=== PATIENT | male | born 1980 ===

== ENCOUNTER 2021-01-05 21:35 | Inpatient (IN) ==
[2021-01-06] MEDS ORDERED: GLUCAGON 1 MG VIAL IM PRN (01:31)
[2021-01-06] MEDS ORDERED: DEXTROSE 50% 25 GM/50 ML VIAL IV PRN (01:31)
[2021-01-06] MEDS ORDERED: SODIUM CHLORIDE 0.9% 1,000 ML IV SCH (02:00)
[2021-01-06 02:04] LABS: Basophils # 0.1 10*3/uL (0.0-0.2); Basophils % 1.3 % (0.0-0.8); Eosinophils # 0.6 10*3/uL (0.0-0.87); Eosinophils % 6.1 % (0.00-10.9); Hematocrit 25.6 VOL% (42.0-52.0); Hemoglobin 7.4 GM/DL (14.0-18.0); Immature Granulocytes % 0.4 %; Immature Granulocytes Absolute 0.04 #; Lymphocytes # 0.7 10*3/uL (1.4-4.0); Lymphocytes % 7.8 % (21.2-54.2); Mean Corpuscular HGB Conc 28.9 GM/DL (32-36); Mean Corpuscular Volume 87.7 FL (87-102); Mean Platelet Volume 8.7 FL (9.6-12.0); Monocytes % 12.5 % (1.7-12.7); NRBC # 0.03 10*3/uL; Neutrophils % 71.9 % (38.7-73.9); Platelet Count 351 T/CUMM (130-400); Red Blood Count 2.92 MC/CUMM (3.8-5.5); White Blood Count 9.4 T/CUMM (4-12)
[2021-01-06 02:24] LABS: Bilirubin,Total 1.5 MG/DL (0.20-1.00); Calcium 8.2 MG/DL (8.5-10.1); Osmolality,Calculated 311.4 MOS/KG (273-304); Potassium 4.2 MMOL/L (3.5-5.1); Total Protein 6.5 G/DL (6.4-8.2)
[2021-01-06 02:26] LABS: Risk Ratio 3.71; Thyroid Stimulating Hormone 4.84 uIU/ml (0.358-3.74)
[2021-01-06] MEDS: HEPARIN 5,000 UNIT/1 ML VIAL SUBCUT SCH ×2 (02:26→17:24)
[2021-01-06 03:18] LABS: Hepatitis B Core IgM Quant 0.06 Index; Hepatitis B Surface Ag Quant < 0.10 Index; Hepatitis B Surface Ag Result Non-Reactive (NonReactive); Hepatitis C Virus Ab Quant 0.06 Index; Hepatitis C Virus Ab Result Non-Reactive (NonReactive)
[2021-01-06] MEDS ORDERED: hydrALAZINE 20 MG/1 ML VIAL IM PRN (03:25)
[2021-01-06] MEDS ORDERED: MORPHINE 2 MG/1 ML SYRINGE IM PRN (03:31)
[2021-01-06 04:31] LABS: Bacteria,Urine Occasional /HPF (Few); Bilirubin,Urine Negative (Negative); Blood, Urine Small mg/dL (Negative); Glucose,Urine (UA) >=500 mg/dL (Negative); Hyaline Casts,Urine 6 /LPF (0-3); Ketones,Urine Negative (Negative); Mucus,Urine Occasional /LPF (Occasional); Nitrite,Urine Negative (Negative); Protein,Urine >=500 MG/DL; RBC,Urine 2 /HPF (0-4); Squamous Epithelial Cell,Urine Occasional /HPF (0-10); Urine Appearance Slightly Hazy (Clear); Urine Color Yellow (Yellow); Urine Specific Gravity 1.012 (1.001-1.035); Urine Urobilinogen < 2.0 EU/DL (0.2-1.0)
[2021-01-06 04:56] LABS: INR 1.1; PT Patient Result 12.5 SECS (10.5-12.0); Partial Thromboplastin Time 30.2 SECS (23.8-32.1)
[2021-01-06] MEDS ORDERED: SIMVASTATIN 10 MG TABLET PO SCH (09:00)
[2021-01-06] MEDS: INSULIN LISPRO 100 UNIT/ML SUBCUT SCH ×2 (11:12→17:34)
[2021-01-06] MEDS ORDERED: FUROSEMIDE 40 MG/4 ML VIAL IV ONE (12:20)
[2021-01-06] MEDS: METOPROLOL SUCCINATE XL 50 MG TABLET PO SCH (12:55)
[2021-01-06] MEDS: ISOSORBIDE MONONITRATE 30 MG TABLET PO SCH (12:55)
[2021-01-06] MEDS ORDERED: POTASSIUM CHLORIDE 20 MEQ TABLET PO PRN (14:07)
[2021-01-06] MEDS: SEVELAMER CARBONATE 800 MG TABLET PO SCH (17:23)
[2021-01-06] MEDS ORDERED: METOPROLOL SUCCINATE XL 50 MG TABLET PO SCH (21:00)
[2021-01-06] MEDS: amLODIPine 10 MG TABLET PO SCH (21:15)
[2021-01-07] MEDS: HEPARIN 5,000 UNIT/1 ML VIAL SUBCUT SCH ×2 (02:50→16:50)
[2021-01-07 07:30] LABS: Calcium 8.1 MG/DL (8.5-10.1); Osmolality,Calculated 309.4 MOS/KG (273-304); Potassium 4.3 MMOL/L (3.5-5.1)
[2021-01-07 07:31] LABS: Basophils # 0.1 10*3/uL (0.0-0.2); Basophils % 1.1 % (0.0-0.8); Eosinophils # 0.4 10*3/uL (0.0-0.87); Eosinophils % 4.8 % (0.00-10.9); Hematocrit 26.1 VOL% (42.0-52.0); Hemoglobin 7.4 GM/DL (14.0-18.0); Immature Granulocytes % 0.6 %; Immature Granulocytes Absolute 0.05 #; Lymphocytes # 0.6 10*3/uL (1.4-4.0); Lymphocytes % 7.6 % (21.2-54.2); Mean Corpuscular HGB Conc 28.4 GM/DL (32-36); Mean Corpuscular Volume 89.1 FL (87-102); Mean Platelet Volume 9.4 FL (9.6-12.0); Monocytes % 14.2 % (1.7-12.7); NRBC # 0.02 10*3/uL; Neutrophils % 71.7 % (38.7-73.9); Platelet Count 339 T/CUMM (130-400); Red Blood Count 2.93 MC/CUMM (3.8-5.5); Red Cell Distribution Width 18.8 % (9.3-17.3); White Blood Count 8.3 T/CUMM (4-12)
[2021-01-07 07:32] LABS: Parathyroid Hormone Intact 73.5 PG/ML (18.4-80.1)
[2021-01-07 07:35] LABS: % Iron Saturation 12.9 % (18-50); Ferritin 136.4 ng/mL (26-388)
[2021-01-07 08:02] LABS: Total Protein 6.5 G/DL (6.4-8.2)
[2021-01-07 08:53] LABS: Hypochromasia 3+; Microcytosis 1+; Ovalocytes Few; Platelet Estimate Normal; Schistocytes Slight
[2021-01-07] MEDS: OMEGA 3 ACID ETHYL ESTERS 1 GM CAPSULE PO SCH (08:54)
[2021-01-07] MEDS: ISOSORBIDE MONONITRATE 30 MG TABLET PO SCH (08:54)
[2021-01-07] MEDS: SEVELAMER CARBONATE 800 MG TABLET PO SCH ×3 (08:54→18:08)
[2021-01-07] MEDS: METOPROLOL SUCCINATE XL 50 MG TABLET PO SCH (08:55)
[2021-01-07] MEDS: ASPIRIN EC 81 MG TABLET PO SCH (08:55)
[2021-01-07] MEDS: INSULIN LISPRO 100 UNIT/ML SUBCUT SCH ×2 (09:00→16:57)
[2021-01-07] MEDS ORDERED: FUROSEMIDE 40 MG/4 ML VIAL IV ONE (11:18)
[2021-01-07] MEDS: FERROUS SULFATE 325 MG TABLET PO SCH (16:50)
[2021-01-07] MEDS: amLODIPine 10 MG TABLET PO SCH (20:37)
[2021-01-08] MEDS: HEPARIN 5,000 UNIT/1 ML VIAL SUBCUT SCH ×2 (02:47→15:29)
[2021-01-08 05:33] LABS: Basophils # 0.1 10*3/uL (0.0-0.2); Eosinophils # 0.5 10*3/uL (0.0-0.87); Eosinophils % 5.2 % (0.00-10.9); Hematocrit 24.8 VOL% (42.0-52.0); Hemoglobin 7.1 GM/DL (14.0-18.0); Immature Granulocytes % 0.3 %; Immature Granulocytes Absolute 0.03 #; Lymphocytes # 0.6 10*3/uL (1.4-4.0); Lymphocytes % 6.9 % (21.2-54.2); Mean Corpuscular HGB Conc 28.6 GM/DL (32-36); Mean Corpuscular Volume 88.9 FL (87-102); Mean Platelet Volume 8.9 FL (9.6-12.0); Monocytes % 12.2 % (1.7-12.7); Neutrophils % 74.4 % (38.7-73.9); Platelet Count 325 T/CUMM (130-400); Red Blood Count 2.79 MC/CUMM (3.8-5.5); Red Cell Distribution Width 18.7 % (9.3-17.3); White Blood Count 8.6 T/CUMM (4-12)
[2021-01-08 05:51] LABS: Calcium 7.6 MG/DL (8.5-10.1); Osmolality,Calculated 310.4 MOS/KG (273-304); Potassium 4.2 MMOL/L (3.5-5.1)
[2021-01-08 05:54] LABS: Albumin 1.9 G/DL (3.4-5.0); Osmolality,Calculated 308.5 MOS/KG (273-304); Potassium 4.2 MMOL/L (3.5-5.1); Total Protein 6.3 G/DL (6.4-8.2)
[2021-01-08 07:04] LABS: Total Protein (Chem) 6.5 G/DL (6.4-8.3)
[2021-01-08] MEDS: INSULIN LISPRO 100 UNIT/ML SUBCUT SCH ×2 (08:54→16:46)
[2021-01-08 09:00] LABS: Albumin (SPE) 2.8 G/DL (3.2-5.3); Albumin (SPE) Rel % 43.4 %; Alpha 1 (SPE) 0.3 G/DL (0.1-0.4); Alpha 1 (SPE) Rel % 5.1 %; Alpha 2 (SPE) 0.9 G/DL (0.4-1.0); Alpha 2 (SPE) Rel % 14.1 %; Beta (SPE) 0.7 G/DL (0.5-1.1); Beta (SPE) Rel % 11.3 %; Gamma (SPE) 1.7 G/DL (0.7-1.7); Gamma (SPE) Rel % 26.1 %
[2021-01-08 09:26] LABS: Immunoglobulin A (Chem) 494 MG/DL (70-400); Immunoglobulin G (Chem) 1500 MG/DL (700-1600); Immunoglobulin M (Chem) 115 MG/DL (40-230)
[2021-01-08 10:02] LABS: Creatinine Clearance Urine 7.21 ML/MIN (70-135)
[2021-01-08] MEDS: SEVELAMER CARBONATE 800 MG TABLET PO SCH ×3 (10:25→16:56)
[2021-01-08] MEDS: ISOSORBIDE MONONITRATE 30 MG TABLET PO SCH (11:11)
[2021-01-08] MEDS: METOPROLOL SUCCINATE XL 100 MG TABLET PO SCH (11:11)
[2021-01-08] MEDS: OMEGA 3 ACID ETHYL ESTERS 1 GM CAPSULE PO SCH (11:11)
[2021-01-08] MEDS: PANTOPRAZOLE 40 MG TABLET PO SCH (11:12)
[2021-01-08] MEDS: FERROUS SULFATE 325 MG TABLET PO SCH (11:12)
[2021-01-08] MEDS: ASPIRIN EC 81 MG TABLET PO SCH (11:12)
[2021-01-08 14:37] LABS: Total Protein 24 Hr Ur Result 9945 MG/24HR (0-149.1); Total Volume,Urine 1300 ML (400-2000)
[2021-01-08] MEDS: amLODIPine 10 MG TABLET PO SCH (21:16)
[2021-01-09] MEDS: HEPARIN 5,000 UNIT/1 ML VIAL SUBCUT SCH ×2 (01:27→15:27)
[2021-01-09 06:19] LABS: Basophils # 0.1 10*3/uL (0.0-0.2); Basophils % 0.9 % (0.0-0.8); Eosinophils # 0.3 10*3/uL (0.0-0.87); Eosinophils % 3.1 % (0.00-10.9); Hematocrit 24.3 VOL% (42.0-52.0); Immature Granulocytes % 0.5 %; Immature Granulocytes Absolute 0.04 #; Lymphocytes # 0.6 10*3/uL (1.4-4.0); Lymphocytes % 6.5 % (21.2-54.2); Mean Corpuscular HGB Conc 28.8 GM/DL (32-36); Monocytes % 13.2 % (1.7-12.7); NRBC # 0.02 10*3/uL; Neutrophils % 75.8 % (38.7-73.9); Platelet Count 307 T/CUMM (130-400); Red Blood Count 2.73 MC/CUMM (3.8-5.5); Red Cell Distribution Width 19.2 % (9.3-17.3); White Blood Count 8.7 T/CUMM (4-12)
[2021-01-09 06:45] LABS: Hypochromasia 1+; Platelet Estimate Normal
[2021-01-09 06:58] LABS: Albumin 1.8 G/DL (3.4-5.0); Bilirubin,Total 1.4 MG/DL (0.20-1.00); Calcium 7.7 MG/DL (8.5-10.1); Osmolality,Calculated 307.7 MOS/KG (273-304); Potassium 4.4 MMOL/L (3.5-5.1); Total Protein 6.3 G/DL (6.4-8.2)
[2021-01-09 07:46] LABS: 24 Hr Protein (Bench) 9945 MG/24HR (0-149.1)
[2021-01-09] MEDS: INSULIN LISPRO 100 UNIT/ML SUBCUT SCH ×2 (08:37→16:10)
[2021-01-09 09:16] LABS: Albumin (UPE) Rel % 65.4 %; Alpha 1 (UPE) 328.2 MG/24H; Alpha 1 (UPE) Rel % 3.3 %; Alpha 2 (UPE) 666.3 MG/24H; Alpha 2 (UPE) Rel % 6.7 %; Beta (UPE) 994.5 MG/24H; Gamma (UPE) Rel % 14.6 %
[2021-01-09] MEDS ORDERED: SODIUM CHLORIDE 0.9% 1,000 ML IV PRN (09:33)
[2021-01-09] MEDS: SEVELAMER CARBONATE 800 MG TABLET PO SCH ×3 (09:56→18:08)
[2021-01-09] MEDS: ASPIRIN EC 81 MG TABLET PO SCH (09:56)
[2021-01-09] MEDS: FERROUS SULFATE 325 MG TABLET PO SCH (09:56)
[2021-01-09] MEDS: ISOSORBIDE MONONITRATE 30 MG TABLET PO SCH (09:56)
[2021-01-09] MEDS: METOPROLOL SUCCINATE XL 100 MG TABLET PO SCH (09:57)
[2021-01-09] MEDS: PANTOPRAZOLE 40 MG TABLET PO SCH (09:57)
[2021-01-09] MEDS: OMEGA 3 ACID ETHYL ESTERS 1 GM CAPSULE PO SCH (09:57)
[2021-01-09] MEDS: amLODIPine 10 MG TABLET PO SCH (21:10)
[2021-01-09 22:36] LABS: Hematocrit 27.9 VOL% (42.0-52.0); Hemoglobin 8.2 GM/DL (14.0-18.0)
[2021-01-10] MEDS: HEPARIN 5,000 UNIT/1 ML VIAL SUBCUT SCH ×2 (01:06→15:06)
[2021-01-10 04:23] LABS: Basophils # 0.1 10*3/uL (0.0-0.2); Basophils % 0.9 % (0.0-0.8); Eosinophils # 0.4 10*3/uL (0.0-0.87); Hemoglobin 8.1 GM/DL (14.0-18.0); Immature Granulocytes % 0.6 %; Immature Granulocytes Absolute 0.05 #; Lymphocytes # 0.6 10*3/uL (1.4-4.0); Lymphocytes % 6.9 % (21.2-54.2); Mean Corpuscular Volume 87.7 FL (87-102); Mean Platelet Volume 8.8 FL (9.6-12.0); Monocytes % 12.8 % (1.7-12.7); Neutrophils % 74.8 % (38.7-73.9); Platelet Count 304 T/CUMM (130-400); Red Blood Count 3.08 MC/CUMM (3.8-5.5); Red Cell Distribution Width 18.6 % (9.3-17.3); White Blood Count 8.8 T/CUMM (4-12)
[2021-01-10 04:41] LABS: Calcium 7.9 MG/DL (8.5-10.1); Osmolality,Calculated 310.5 MOS/KG (273-304); Potassium 4.5 MMOL/L (3.5-5.1)
[2021-01-10] MEDS: OMEGA 3 ACID ETHYL ESTERS 1 GM CAPSULE PO SCH (09:52)
[2021-01-10] MEDS: ASPIRIN EC 81 MG TABLET PO SCH (09:52)
[2021-01-10] MEDS: PANTOPRAZOLE 40 MG TABLET PO SCH (09:52)
[2021-01-10] MEDS: FERROUS SULFATE 325 MG TABLET PO SCH (09:52)
[2021-01-10] MEDS: ISOSORBIDE MONONITRATE 60 MG TABLET PO SCH (09:52)
[2021-01-10] MEDS: SEVELAMER CARBONATE 800 MG TABLET PO SCH ×3 (09:52→16:38)
[2021-01-10] MEDS: METOPROLOL SUCCINATE XL 100 MG TABLET PO SCH (09:52)
[2021-01-10 09:58] LABS: Lymphocytes,Synovial Fluid 26 %; Neutrophils,Synovial Fluid 74 %
[2021-01-10 10:01] LABS: Cholesterol Crystals None Seen /LPF
[2021-01-10] MEDS: INSULIN LISPRO 100 UNIT/ML SUBCUT SCH ×2 (10:04→16:43)
[2021-01-10] MEDS: amLODIPine 10 MG TABLET PO SCH (21:36)
[2021-01-11] MEDS: HEPARIN 5,000 UNIT/1 ML VIAL SUBCUT SCH ×2 (02:47→13:42)
[2021-01-11 05:48] LABS: Basophils # 0.1 10*3/uL (0.0-0.2); Basophils % 0.8 % (0.0-0.8); Eosinophils # 0.4 10*3/uL (0.0-0.87); Eosinophils % 4.7 % (0.00-10.9); Hematocrit 26.5 VOL% (42.0-52.0); Hemoglobin 7.7 GM/DL (14.0-18.0); Immature Granulocytes % 0.4 %; Immature Granulocytes Absolute 0.03 #; Lymphocytes # 0.5 10*3/uL (1.4-4.0); Lymphocytes % 5.7 % (21.2-54.2); Mean Corpuscular HGB Conc 29.1 GM/DL (32-36); Mean Corpuscular Volume 87.7 FL (87-102); Neutrophils % 76.4 % (38.7-73.9); Platelet Count 300 T/CUMM (130-400); Red Blood Count 3.02 MC/CUMM (3.8-5.5); Red Cell Distribution Width 18.4 % (9.3-17.3); White Blood Count 8.5 T/CUMM (4-12)
[2021-01-11 06:07] LABS: Calcium 7.9 MG/DL (8.5-10.1); Osmolality,Calculated 308.5 MOS/KG (273-304); Potassium 4.5 MMOL/L (3.5-5.1)
[2021-01-11] MEDS: ASPIRIN EC 81 MG TABLET PO SCH (10:01)
[2021-01-11] MEDS: PANTOPRAZOLE 40 MG TABLET PO SCH (10:02)
[2021-01-11] MEDS: FERROUS SULFATE 325 MG TABLET PO SCH (10:02)
[2021-01-11] MEDS: SEVELAMER CARBONATE 800 MG TABLET PO SCH ×2 (10:02→11:38)
[2021-01-11] MEDS: OMEGA 3 ACID ETHYL ESTERS 1 GM CAPSULE PO SCH (10:02)
[2021-01-11] MEDS: ISOSORBIDE MONONITRATE 60 MG TABLET PO SCH (10:02)
[2021-01-11] MEDS: METOPROLOL SUCCINATE XL 100 MG TABLET PO SCH (10:02)
[2021-01-11] MEDS: INSULIN LISPRO 100 UNIT/ML SUBCUT SCH (10:09)
[2021-01-11] MEDS ORDERED: INFLUENZA VIRUS VACCINE 0.5 ML SYRINGE IM ONE (13:33)
[2021-01-11 16:25] VITALS: BP 136/82
[2021-01-12 09:11] LABS: Immuno Free Light Chain Kappa 19.28 MG/DL (0.33-1.94); Immuno Free Light Chain Lambda 17.96 MG/DL (0.57-2.63); Immuno Free Light Chain Ratio 1.07 MG/DL (0.26-1.65)
== END 2021-01-11 16:30 | disposition home health service (06) | DRG 698 ==
LOC: SUATTDRO 23:11 → N.TELES 23:11
PROVIDERS: ADMIT Internal Medicine; ATTEND Internal Medicine

== ENCOUNTER 2021-01-29 11:56 | Inpatient (IN) ==
[2021-01-29] MEDS ORDERED: ACETAMINOPHEN 325 MG TABLET PO PRN (15:38)
[2021-01-29] MEDS ORDERED: BISACODYL 5 MG TABLET PO PRN (15:38)
[2021-01-29] MEDS ORDERED: PROMETHAZINE 25 MG TABLET PO PRN (15:38)
[2021-01-29] MEDS ORDERED: ONDANSETRON 4 MG/2 ML VIAL IV PRN (15:38)
[2021-01-29] MEDS ORDERED: LOPERAMIDE 2 MG CAPSULE PO ONE (15:52)
[2021-01-29] MEDS ORDERED: LOPERAMIDE 2 MG CAPSULE PO PRN (15:52)
[2021-01-29 17:29] LABS: Basophils # 0.1 10*3/uL (0.0-0.2); Basophils % 0.6 % (0.0-0.8); Eosinophils # 0.3 10*3/uL (0.0-0.87); Eosinophils % 2.4 % (0.00-10.9); Hemoglobin 7.8 GM/DL (14.0-18.0); Immature Granulocytes % 0.6 %; Immature Granulocytes Absolute 0.07 #; Lymphocytes # 0.4 10*3/uL (1.4-4.0); Lymphocytes % 3.6 % (21.2-54.2); Mean Corpuscular HGB Conc 28.9 GM/DL (32-36); Mean Corpuscular Volume 87.1 FL (87-102); Mean Platelet Volume 8.8 FL (9.6-12.0); Monocytes % 12.9 % (1.7-12.7); Neutrophils % 79.9 % (38.7-73.9); Platelet Count 289 T/CUMM (130-400); Red Cell Distribution Width 19.2 % (9.3-17.3); White Blood Count 11.9 T/CUMM (4-12)
[2021-01-29 17:54] LABS: % Iron Saturation 10.5 % (18-50); Ferritin 140.5 ng/mL (26-388)
[2021-01-29 17:55] LABS: Anisocytosis 2+; Burr Cells Few; Eosinophils 2 % (0-10); Hypochromasia 1+; Lymphocytes 2 % (20-55); Macrocytosis 1+; Microcytosis 2+; Platelet Estimate Normal; Poikilocytosis Few; Segmented Neutrophils 90 % (50-85); Total Cells Counted 100
[2021-01-29 17:56] LABS: Polychromasia Few
[2021-01-29 17:57] LABS: Calcium 7.6 MG/DL (8.5-10.1); Osmolality,Calculated 317.4 MOS/KG (273-304); Potassium 4.9 MMOL/L (3.5-5.1)
[2021-01-29] MEDS: FUROSEMIDE 80 MG TABLET PO SCH (18:12)
[2021-01-29] MEDS: SEVELAMER CARBONATE 800 MG TABLET PO SCH (18:12)
[2021-01-29 18:32] LABS: Hepatitis B Core IgM Quant 0.14 Index; Hepatitis B Surface Ag Quant < 0.10 Index; Hepatitis B Surface Ag Result Non-Reactive (NonReactive); Hepatitis C Virus Ab Quant 0.11 Index; Hepatitis C Virus Ab Result Non-Reactive (NonReactive)
[2021-01-29] MEDS: amLODIPine 10 MG TABLET PO SCH (22:10)
[2021-01-30] MEDS ORDERED: EPOETIN ALFA-EPBX 10,000 UNIT/ML VIAL IV PRN (08:29)
[2021-01-30] MEDS ORDERED: MIDAZOLAM 2 MG/2 ML VIAL ONE (08:51)
[2021-01-30] MEDS ORDERED: LIDOCAINE 2% 5 ML VIAL ONE (08:51)
[2021-01-30] MEDS ORDERED: fentaNYL 100 MCG/2 ML VIAL ONE (08:51)
[2021-01-30] MEDS ORDERED: propofoL 200 MG/20 ML VIAL IV ONE (08:51)
[2021-01-30] MEDS ORDERED: KETAMINE 500 MG/10 ML VIAL ONE (08:51)
[2021-01-30] MEDS ORDERED: IRON SUCROSE 100 MG/5 ML VIAL IV SCH (09:00)
[2021-01-30] MEDS ORDERED: LIDOCAINE 1% 50 ML VIAL ONE (09:08)
[2021-01-30] MEDS ORDERED: HEPARIN 5,000 UNIT/1 ML VIAL ONE (09:08)
[2021-01-30] MEDS ORDERED: BUPIVACAINE MPF 0.25% 30 ML VIAL ONE (09:08)
[2021-01-30] MEDS ORDERED: ceFAZolin 1,000 MG VIAL ONE (10:00)
[2021-01-30] MEDS ORDERED: SODIUM CHLORIDE 0.9% 250 ML IV SCH (10:00)
[2021-01-30] MEDS: SEVELAMER CARBONATE 800 MG TABLET PO SCH ×3 (11:58→17:26)
[2021-01-30] MEDS: CHOLECALCIFEROL 5,000 UNIT TABLET PO SCH (11:59)
[2021-01-30] MEDS: ASPIRIN EC 81 MG TABLET PO SCH (11:59)
[2021-01-30] MEDS: FUROSEMIDE 80 MG TABLET PO SCH ×2 (11:59→17:26)
[2021-01-30] MEDS: ISOSORBIDE MONONITRATE 60 MG TABLET PO SCH (12:00)
[2021-01-30] MEDS: PANTOPRAZOLE 40 MG TABLET PO SCH (12:00)
[2021-01-30] MEDS: FERRIC GLUCONATE COMPLEX 125 MG in SODIUM CHLORIDE 0.9% 100 ML IV SCH (12:01)
[2021-01-30] MEDS: INSULIN REGULAR 100 UNIT/ML SUBCUT SCH ×3 (12:01→22:11)
[2021-01-30] MEDS: METOPROLOL SUCCINATE XL 100 MG TABLET PO SCH (12:01)
[2021-01-30] MEDS: INSULIN GLARGINE 100 UNIT/ML SUBCUT SCH (12:15)
[2021-01-30] MEDS ORDERED: HEPARIN 10,000 UNIT/10 ML VIAL IV SCH (14:30)
[2021-01-30] MEDS: amLODIPine 10 MG TABLET PO SCH (22:10)
[2021-01-31 05:36] LABS: Calcium 7.5 MG/DL (8.5-10.1); Osmolality,Calculated 313.1 MOS/KG (273-304); Potassium 4.6 MMOL/L (3.5-5.1)
[2021-01-31 05:57] LABS: Basophils # 0.1 10*3/uL (0.0-0.2); Basophils % 0.7 % (0.0-0.8); Eosinophils # 0.4 10*3/uL (0.0-0.87); Eosinophils % 3.7 % (0.00-10.9); Hematocrit 26.2 VOL% (42.0-52.0); Hemoglobin 7.5 GM/DL (14.0-18.0); Immature Granulocytes % 0.5 %; Immature Granulocytes Absolute 0.05 #; Lymphocytes # 0.5 10*3/uL (1.4-4.0); Lymphocytes % 4.7 % (21.2-54.2); Mean Corpuscular HGB Conc 28.6 GM/DL (32-36); Mean Corpuscular Volume 89.1 FL (87-102); Monocytes % 12.3 % (1.7-12.7); NRBC # 0.02 10*3/uL; Neutrophils % 78.1 % (38.7-73.9); Platelet Count 250 T/CUMM (130-400); Red Blood Count 2.94 MC/CUMM (3.8-5.5); Red Cell Distribution Width 19.1 % (9.3-17.3); White Blood Count 10.2 T/CUMM (4-12)
[2021-01-31 06:05] LABS: Burr Cells Slight; Eosinophils 6 % (0-10); Hypochromasia 1+; Lymphocytes 2 % (20-55); Microcytosis 1+; Ovalocytes Slight; Platelet Estimate Adequate; Segmented Neutrophils 84 % (50-85); Total Cells Counted 100
[2021-01-31] MEDS: PANTOPRAZOLE 40 MG TABLET PO SCH (06:17)
[2021-01-31] MEDS: INSULIN REGULAR 100 UNIT/ML SUBCUT SCH ×4 (07:53→23:58)
[2021-01-31] MEDS: FUROSEMIDE 80 MG TABLET PO SCH ×2 (11:59→16:04)
[2021-01-31] MEDS: SEVELAMER CARBONATE 800 MG TABLET PO SCH ×3 (11:59→18:25)
[2021-01-31] MEDS: ISOSORBIDE MONONITRATE 60 MG TABLET PO SCH (12:00)
[2021-01-31] MEDS: CHOLECALCIFEROL 5,000 UNIT TABLET PO SCH (12:00)
[2021-01-31] MEDS: ASPIRIN EC 81 MG TABLET PO SCH (12:00)
[2021-01-31] MEDS: INSULIN GLARGINE 100 UNIT/ML SUBCUT SCH (12:00)
[2021-01-31] MEDS: FERRIC GLUCONATE COMPLEX 125 MG in SODIUM CHLORIDE 0.9% 100 ML IV SCH (12:00)
[2021-01-31] MEDS: METOPROLOL SUCCINATE XL 100 MG TABLET PO SCH (12:00)
[2021-01-31] MEDS: amLODIPine 10 MG TABLET PO SCH (22:25)
[2021-02-01] MEDS: PANTOPRAZOLE 40 MG TABLET PO SCH (06:41)
[2021-02-01 07:11] LABS: Basophils # 0.1 10*3/uL (0.0-0.2); Basophils % 0.7 % (0.0-0.8); Eosinophils # 0.4 10*3/uL (0.0-0.87); Eosinophils % 3.8 % (0.00-10.9); Hematocrit 24.3 VOL% (42.0-52.0); Hemoglobin 7.1 GM/DL (14.0-18.0); Immature Granulocytes % 0.7 %; Immature Granulocytes Absolute 0.08 #; Lymphocytes # 0.5 10*3/uL (1.4-4.0); Lymphocytes % 4.7 % (21.2-54.2); Mean Corpuscular HGB Conc 29.2 GM/DL (32-36); Mean Corpuscular Volume 87.7 FL (87-102); Mean Platelet Volume 9.1 FL (9.6-12.0); Monocytes % 13.5 % (1.7-12.7); Neutrophils % 76.6 % (38.7-73.9); Platelet Count 260 T/CUMM (130-400); Red Blood Count 2.77 MC/CUMM (3.8-5.5); Red Cell Distribution Width 18.9 % (9.3-17.3); White Blood Count 10.8 T/CUMM (4-12)
[2021-02-01 07:32] LABS: Albumin 1.7 G/DL (3.4-5.0); Bilirubin,Direct 0.3 MG/DL (0.0-0.20); Bilirubin,Indirect 0.6 MG/DL (0.0-1.0); Bilirubin,Total 0.9 MG/DL (0.20-1.00); Calcium 7.4 MG/DL (8.5-10.1); Osmolality,Calculated 302.1 MOS/KG (273-304); Potassium 4.1 MMOL/L (3.5-5.1); Total Protein 6.2 G/DL (6.4-8.2)
[2021-02-01 07:34] LABS: Anisocytosis 3+; Band Neutrophils 5 % (0-10); Burr Cells Few; Eosinophils 6 % (0-10); Lymphocytes 7 % (20-55); Platelet Estimate Normal; Polychromasia Slight; Segmented Neutrophils 69 % (50-85); Total Cells Counted 100
[2021-02-01] MEDS: INSULIN REGULAR 100 UNIT/ML SUBCUT SCH ×4 (07:42→20:08)
[2021-02-01] MEDS: METOPROLOL SUCCINATE XL 100 MG TABLET PO SCH (09:33)
[2021-02-01] MEDS: CHOLECALCIFEROL 5,000 UNIT TABLET PO SCH (09:33)
[2021-02-01] MEDS: FUROSEMIDE 80 MG TABLET PO SCH ×2 (09:33→15:29)
[2021-02-01] MEDS: SEVELAMER CARBONATE 800 MG TABLET PO SCH ×3 (09:33→16:37)
[2021-02-01] MEDS: FERRIC GLUCONATE COMPLEX 125 MG in SODIUM CHLORIDE 0.9% 100 ML IV SCH (09:33)
[2021-02-01] MEDS: ASPIRIN EC 81 MG TABLET PO SCH (09:33)
[2021-02-01] MEDS: INSULIN GLARGINE 100 UNIT/ML SUBCUT SCH (09:33)
[2021-02-01] MEDS: ISOSORBIDE MONONITRATE 60 MG TABLET PO SCH (09:33)
[2021-02-01] MEDS: amLODIPine 10 MG TABLET PO SCH (20:06)
[2021-02-02 05:19] LABS: Basophils # 0.1 10*3/uL (0.0-0.2); Basophils % 0.7 % (0.0-0.8); Eosinophils # 0.5 10*3/uL (0.0-0.87); Eosinophils % 4.7 % (0.00-10.9); Hematocrit 25.3 VOL% (42.0-52.0); Hemoglobin 7.3 GM/DL (14.0-18.0); Immature Granulocytes % 0.7 %; Immature Granulocytes Absolute 0.08 #; Lymphocytes # 0.5 10*3/uL (1.4-4.0); Lymphocytes % 4.8 % (21.2-54.2); Mean Corpuscular HGB Conc 28.9 GM/DL (32-36); Mean Corpuscular Volume 88.2 FL (87-102); Neutrophils % 76.1 % (38.7-73.9); Platelet Count 271 T/CUMM (130-400); Red Blood Count 2.87 MC/CUMM (3.8-5.5); White Blood Count 10.9 T/CUMM (4-12)
[2021-02-02 05:38] LABS: Calcium 7.7 MG/DL (8.5-10.1); Osmolality,Calculated 291.4 MOS/KG (273-304)
[2021-02-02 05:53] LABS: Band Neutrophils 2 % (0-10); Eosinophils 4 % (0-10); Segmented Neutrophils 73 % (50-85); Total Cells Counted 100
[2021-02-02 05:54] LABS: Acanthocytes Few; Hypochromasia 2+; Platelet Estimate Adequate; Poikilocytosis Slight
[2021-02-02] MEDS: PANTOPRAZOLE 40 MG TABLET PO SCH (05:54)
[2021-02-02] MEDS: INSULIN REGULAR 100 UNIT/ML SUBCUT SCH ×4 (08:11→21:21)
[2021-02-02] MEDS: ISOSORBIDE MONONITRATE 60 MG TABLET PO SCH (08:28)
[2021-02-02] MEDS: INSULIN GLARGINE 100 UNIT/ML SUBCUT SCH (08:28)
[2021-02-02] MEDS: METOPROLOL SUCCINATE XL 100 MG TABLET PO SCH (08:29)
[2021-02-02] MEDS: CHOLECALCIFEROL 5,000 UNIT TABLET PO SCH (08:29)
[2021-02-02] MEDS: SEVELAMER CARBONATE 800 MG TABLET PO SCH ×3 (08:29→17:19)
[2021-02-02] MEDS: ASPIRIN EC 81 MG TABLET PO SCH (08:29)
[2021-02-02] MEDS: FUROSEMIDE 80 MG TABLET PO SCH ×2 (08:29→15:32)
[2021-02-02] MEDS: FERRIC GLUCONATE COMPLEX 125 MG in SODIUM CHLORIDE 0.9% 100 ML IV SCH (12:47)
[2021-02-02] MEDS: amLODIPine 10 MG TABLET PO SCH (21:21)
[2021-02-03] MEDS: PANTOPRAZOLE 40 MG TABLET PO SCH (05:40)
[2021-02-03] MEDS: INSULIN REGULAR 100 UNIT/ML SUBCUT SCH ×4 (11:32→20:41)
[2021-02-03] MEDS: SEVELAMER CARBONATE 800 MG TABLET PO SCH ×3 (11:34→17:16)
[2021-02-03] MEDS: FERRIC GLUCONATE COMPLEX 125 MG in SODIUM CHLORIDE 0.9% 100 ML IV SCH (12:34)
[2021-02-03] MEDS: METOPROLOL SUCCINATE XL 100 MG TABLET PO SCH (12:38)
[2021-02-03] MEDS: ISOSORBIDE MONONITRATE 60 MG TABLET PO SCH (12:38)
[2021-02-03] MEDS: ASPIRIN EC 81 MG TABLET PO SCH (12:38)
[2021-02-03] MEDS: FUROSEMIDE 80 MG TABLET PO SCH ×2 (12:38→15:55)
[2021-02-03] MEDS: CHOLECALCIFEROL 5,000 UNIT TABLET PO SCH (12:38)
[2021-02-03] MEDS: INSULIN GLARGINE 100 UNIT/ML SUBCUT SCH (12:39)
[2021-02-03] MEDS: amLODIPine 10 MG TABLET PO SCH (20:41)
[2021-02-04] MEDS: PANTOPRAZOLE 40 MG TABLET PO SCH (15:23)
[2021-02-04] MEDS: FUROSEMIDE 80 MG TABLET PO SCH ×2 (15:24→16:45)
[2021-02-04] MEDS: SEVELAMER CARBONATE 800 MG TABLET PO SCH ×2 (15:24→16:45)
[2021-02-04] MEDS: INSULIN REGULAR 100 UNIT/ML SUBCUT SCH ×3 (15:24→21:08)
[2021-02-04] MEDS: CHOLECALCIFEROL 5,000 UNIT TABLET PO SCH (15:25)
[2021-02-04] MEDS: METOPROLOL SUCCINATE XL 100 MG TABLET PO SCH (15:25)
[2021-02-04] MEDS: ASPIRIN EC 81 MG TABLET PO SCH (15:25)
[2021-02-04] MEDS: INSULIN GLARGINE 100 UNIT/ML SUBCUT SCH (15:25)
[2021-02-04] MEDS: ISOSORBIDE MONONITRATE 60 MG TABLET PO SCH (15:25)
[2021-02-04] MEDS: FERRIC GLUCONATE COMPLEX 125 MG in SODIUM CHLORIDE 0.9% 100 ML IV SCH (15:25)
[2021-02-04] MEDS: amLODIPine 10 MG TABLET PO SCH (21:08)
[2021-02-05 06:05] LABS: Basophils # 0.1 10*3/uL (0.0-0.2); Eosinophils # 0.7 10*3/uL (0.0-0.87); Eosinophils % 6.9 % (0.00-10.9); Hemoglobin 7.1 GM/DL (14.0-18.0); Immature Granulocytes % 0.5 %; Immature Granulocytes Absolute 0.05 #; Lymphocytes # 0.7 10*3/uL (1.4-4.0); Lymphocytes % 6.2 % (21.2-54.2); Mean Corpuscular HGB Conc 28.4 GM/DL (32-36); Mean Corpuscular Volume 87.7 FL (87-102); Mean Platelet Volume 8.9 FL (9.6-12.0); Monocytes % 12.1 % (1.7-12.7); Neutrophils % 73.3 % (38.7-73.9); Platelet Count 279 T/CUMM (130-400); Red Blood Count 2.85 MC/CUMM (3.8-5.5); White Blood Count 10.5 T/CUMM (4-12)
[2021-02-05] MEDS: PANTOPRAZOLE 40 MG TABLET PO SCH (06:07)
[2021-02-05 06:32] LABS: Anisocytosis 1+; Hypochromasia 2+; Microcytosis 1+; Ovalocytes Few; Platelet Estimate Normal; Polychromasia Slight
[2021-02-05 06:34] LABS: % Iron Saturation 12.9 % (18-50); Ferritin 233.6 ng/mL (26-388)
[2021-02-05 06:45] LABS: Albumin 1.8 G/DL (3.4-5.0); Bilirubin,Total 0.6 MG/DL (0.20-1.00); Calcium 7.7 MG/DL (8.5-10.1); Osmolality,Calculated 283.5 MOS/KG (273-304); Potassium 4.3 MMOL/L (3.5-5.1); Total Protein 6.3 G/DL (6.4-8.2)
[2021-02-05] MEDS: INSULIN REGULAR 100 UNIT/ML SUBCUT SCH ×4 (09:00→20:32)
[2021-02-05] MEDS: SEVELAMER CARBONATE 800 MG TABLET PO SCH ×3 (11:23→16:59)
[2021-02-05] MEDS: CHOLECALCIFEROL 5,000 UNIT TABLET PO SCH (12:45)
[2021-02-05] MEDS: FERRIC GLUCONATE COMPLEX 125 MG in SODIUM CHLORIDE 0.9% 100 ML IV SCH (12:45)
[2021-02-05] MEDS: ASPIRIN EC 81 MG TABLET PO SCH (12:45)
[2021-02-05] MEDS: METOPROLOL SUCCINATE XL 100 MG TABLET PO SCH (12:45)
[2021-02-05] MEDS: ISOSORBIDE MONONITRATE 60 MG TABLET PO SCH (12:45)
[2021-02-05] MEDS: FUROSEMIDE 80 MG TABLET PO SCH ×3 (12:45→16:15)
[2021-02-05] MEDS: INSULIN GLARGINE 100 UNIT/ML SUBCUT SCH (14:48)
[2021-02-05] MEDS: amLODIPine 10 MG TABLET PO SCH (20:31)
[2021-02-06] MEDS: PANTOPRAZOLE 40 MG TABLET PO SCH (05:43)
[2021-02-06] MEDS: INSULIN GLARGINE 100 UNIT/ML SUBCUT SCH (08:31)
[2021-02-06] MEDS: ISOSORBIDE MONONITRATE 60 MG TABLET PO SCH (08:32)
[2021-02-06] MEDS: METOPROLOL SUCCINATE XL 100 MG TABLET PO SCH (08:32)
[2021-02-06] MEDS: SEVELAMER CARBONATE 800 MG TABLET PO SCH ×3 (08:32→16:23)
[2021-02-06] MEDS: ASPIRIN EC 81 MG TABLET PO SCH (08:32)
[2021-02-06] MEDS: CHOLECALCIFEROL 5,000 UNIT TABLET PO SCH (08:32)
[2021-02-06] MEDS: FUROSEMIDE 80 MG TABLET PO SCH ×2 (08:32→16:23)
[2021-02-06] MEDS: FERRIC GLUCONATE COMPLEX 125 MG in SODIUM CHLORIDE 0.9% 100 ML IV SCH (08:39)
[2021-02-06] MEDS: INSULIN REGULAR 100 UNIT/ML SUBCUT SCH ×4 (09:35→20:16)
[2021-02-06] MEDS: COLLAGENASE OINT 30 GM TUBE TOP SCH (15:15)
[2021-02-06] MEDS: amLODIPine 10 MG TABLET PO SCH (20:16)
[2021-02-07] MEDS: guaiFENesin 200 MG/10 ML UDCUP PO PRN ×2 (00:11→20:58)
[2021-02-07] MEDS: PANTOPRAZOLE 40 MG TABLET PO SCH (06:25)
[2021-02-07] MEDS: INSULIN REGULAR 100 UNIT/ML SUBCUT SCH ×4 (08:25→21:00)
[2021-02-07] MEDS: ASPIRIN EC 81 MG TABLET PO SCH (08:48)
[2021-02-07] MEDS: FUROSEMIDE 80 MG TABLET PO SCH ×2 (08:48→15:38)
[2021-02-07] MEDS: ISOSORBIDE MONONITRATE 60 MG TABLET PO SCH (08:48)
[2021-02-07] MEDS: CHOLECALCIFEROL 5,000 UNIT TABLET PO SCH (08:48)
[2021-02-07] MEDS: METOPROLOL SUCCINATE XL 100 MG TABLET PO SCH (08:48)
[2021-02-07] MEDS: INSULIN GLARGINE 100 UNIT/ML SUBCUT SCH (08:49)
[2021-02-07] MEDS: SEVELAMER CARBONATE 800 MG TABLET PO SCH ×3 (08:49→16:01)
[2021-02-07] MEDS: FERRIC GLUCONATE COMPLEX 125 MG in SODIUM CHLORIDE 0.9% 100 ML IV SCH (15:38)
[2021-02-07] MEDS: COLLAGENASE OINT 30 GM TUBE TOP SCH (15:40)
[2021-02-07] MEDS: amLODIPine 10 MG TABLET PO SCH (20:58)
[2021-02-08] MEDS: PANTOPRAZOLE 40 MG TABLET PO SCH (05:58)
[2021-02-08] MEDS: INSULIN REGULAR 100 UNIT/ML SUBCUT SCH ×2 (07:47→12:28)
[2021-02-08] MEDS: CHOLECALCIFEROL 5,000 UNIT TABLET PO SCH (09:05)
[2021-02-08] MEDS: ASPIRIN EC 81 MG TABLET PO SCH (09:05)
[2021-02-08] MEDS: ISOSORBIDE MONONITRATE 60 MG TABLET PO SCH (09:05)
[2021-02-08] MEDS: SEVELAMER CARBONATE 800 MG TABLET PO SCH ×2 (09:05→12:51)
[2021-02-08] MEDS: FUROSEMIDE 80 MG TABLET PO SCH (09:05)
[2021-02-08] MEDS: INSULIN GLARGINE 100 UNIT/ML SUBCUT SCH (09:06)
[2021-02-08] MEDS: FERRIC GLUCONATE COMPLEX 125 MG in SODIUM CHLORIDE 0.9% 100 ML IV SCH (09:06)
[2021-02-08] MEDS: METOPROLOL SUCCINATE XL 100 MG TABLET PO SCH (09:06)
[2021-02-08] MEDS: COLLAGENASE OINT 30 GM TUBE TOP SCH (09:07)
[2021-02-08 12:04] VITALS: BP 146/85
== END 2021-02-08 15:50 | DRG 291 ==
LOC: N.5E 14:13
PROVIDERS: ADMIT Internal Medicine Nephrology; ATTEND Internal Medicine Nephrology